=== PATIENT | male | born 1975 | race Caucasian/White ===

== ENCOUNTER 2016-08-11 18:11 | Emergency (ER) | payer OTHER, MEDICAID ==
[2016-08-11 18:24] VITALS: BP 145/90; PULSE 125; RESP 20; TEMP 98.6; O2SAT 96
--- NOTE | 2016-08-11 18:52 | EDPHY ---
ED Progress Note Narrative: Patient left without being seen, never evaluated by myself or other provider in the emergency department.
== END 2016-08-11 18:50 | disposition left against medical advice (07) ==
DX: Z53.21 Procedure and treatment not carried out due to patient leaving prior to being seen by health care provider (principal)

== ENCOUNTER 2016-09-06 08:58 | Emergency (ER) | payer OTHER, MEDICAID ==
[2016-09-06 09:27] VITALS: RESP 16; TEMP 97.3
[2016-09-06] MEDS ORDERED: TDAP ADULT 0.5 ML INJ (BOOSTRIX) IM ONE (09:58)
--- NOTE | 2016-09-06 11:01 | EDPHY ---
H & P Stated Complaint: laceration to right middle finger on broken glass 2 days ago HPI/ROS: CHIEF COMPLAINT: Finger injury HISTORY OF PRESENT ILLNESS: Patient complains of laceration to the right middle finger 2 days ago. This was when a glass jar accidentally broke consent. Sustained a large laceration to the volar aspect of the right middle finger, and superficial lacerations of the 4th and 5th finger. He attempted to dress this himself. He has had bacitracin and an occlusive dressing on it over the past 2 days. He is now concerned about the possibility of infection. He has moderate pain with moving the finger. He has minimal bleeding noted. No numbness or tingling distally. No cyanosis or pallor distally. He feels that he is unable to fully flex the finger. No injury to the palm. He is not sure when his last tetanus shot was. No other associated complaints or modifying factors. PRIOR ORTHO INJURIES: None ESTABLISHED ORTHOPEDIST: None REVIEW OF SYSTEMS: Ten systems reviewed and are negative unless otherwise noted in the HPI EXAMINATION General Appearance: Alert, no distress Cardiovascular: Pulses normal throughout. Symmetric radial pulses are 2+. Brisk cap refill Neurological: A&O, sensory symmetric, strength symmetric. Two point sensation retained Skin: Warm and dry, no rash. There is a curvilinear, jagged laceration with laceration on the volar aspect of the middle finger overlying the PIP joint and the proximal phalanx. There is dried blood around the edges. There is moderate edema to the finger. Superficial lacerations on the volar aspect of the 4th and 5th fingers. Sub cm. Extremities: Tenderness over the volar aspect of the right middle finger involving the laceration. His range of motion is intact but painful. He retains the ability to flex the distal phalanx. He has limited flexion of the entire finger due to edema of the finger. He is neurovascular intact distal to the injury. Psychiatric: Mood and affect normal DIFFERENTIAL DIAGNOSES: Including but not limited to complex laceration, laceration with delayed healing , foreign body MDM: 10:30 a.m. Laceration to the right middle finger 2 days ago. This was from a glass jar in his home. Patient is not seek any care until today. He has had an occlusive dressing with bacitracin the entire time. The wound is very boggy and edematous. No signs of infection. He is neurovascular intact distal to the injury. X-ray has been ordered for the possibility of foreign body. X-ray interpretation by the radiologist is that there are 2, sub mm punctate areas of possible foreign body on the medial aspect of the finger. I will pull the skin flap back, explore the wound bed, and we will copiously irrigated. 11:05 a.m. I re-evaluated the wound and explored the wound bed. There was 1 small piece of glass that I was able to feel the forceps and removed. We will proceed with copious irrigation. Then I will proceed with tacking the wound down loosely, bulky dressing and follow up with hand surgeon. 11:47 a.m. Wound has been copiously irrigated. I re-explored I cannot appreciate find any evidence of foreign body. I have close the wound loosely with 5, simple interrupted sutures. We will provide bulk dressing with tube gauze. I will provide prescription for clindamycin due to his penicillin allergy. I discussed return to the emergency department precautions. He is to follow up with hand surgeon this week for definitive care. Return here for signs of infection as discussed. He is comfortable with this plan. He is neurovascular intact post procedure. He is discharged home stable condition. ED Precautions: Worsening pain. Erythema, edema, cyanosis, pallor, paresthesia or anesthesia. SUPERVISION: Patient was evaluated in conjunction with the supervising physician. Please see their note for details. Source: Patient Exam Limitations: No limitations - Personal History Current Tetanus Diphtheria and Acellular Pertussis (TDAP): Unsure - Medical/Surgical History Hx Asthma: No Hx Chronic Respiratory Disease: No Hx Diabetes: No Hx Cardiac Disease: No Hx Renal Disease: No Hx Cirrhosis: No Hx Alcoholism: No Hx HIV/AIDS: No Hx Splenectomy or Spleen Trauma: No Other PMH: BIPOLAR, SLEEP DISORDER, ?ADHD - Social History Smoking Status: Current every day smoker Constitutional: Initial Vital Signs Temperature (C) 97.3 F 09/06/16 09:23 Heart Rate 86 09/06/16 09:23 Respiratory Rate 16 09/06/16 09:23 Blood Pressure 111/70 09/06/16 09:23 O2 Sat (%) 95 09/06/16 09:23 O2 Delivery Mode Room Air Allergies/Adverse Reactions: Penicillins Allergy (Severe, Verified 08/22/14 19:47) rash, resp distress divalproex sodium [From Depakote] Allergy (Verified 08/22/14 19:47) haloperidol [From Haldol] Allergy (Verified 08/22/14 19:47) haloperidol lactate [From Haldol] Allergy (Verified 08/22/14 19:47) red dye Allergy (Verified 08/22/14 19:47) BIPOLAR MED USED FOR ACNE Allergy (Uncoded 08/22/14 19:47) HALDOL Allergy (Uncoded 08/22/14 19:47) Home Medications: Medication Instructions Recorded Clindamycin 300 mg PO Q8 #60 cap 09/06/16 Medical Decision Making - Diagnostics Imaging Results: Imaging Impressions Finger X-Ray 09/06/16 09:49 Impression: Punctate, less than 1 mm, densities reside in the soft tissues of the index finger. No large retained foreign body. - Data Points Medications Given: Discontinued Medications Diphtheria/Tetanus/Acell Pertussis (Boostrix) 0.5 ml IM .ONCE ONE Stop: 09/06/16 09:59 Last Admin: 09/06/16 10:14 Dose: 0.5 ml Departure - Departure Disposition: Home, Routine, Self-Care Clinical Impression: Finger laceration Qualifiers: Encounter type: initial encounter Qualified Code(s): S61.219A - Laceration without foreign body of unspecified finger without damage to nail, initial encounter Condition: Good Instructions: Finger Laceration (ED), Care For Your Stitches (ED), Wound Healing and Your Diet (ED) Additional Instructions: Wound care as discussed with daily dressing changes. Follow up with hand surgeon for definitive care. Return here for signs of infection Referrals: NONE *PRIMARY CARE P,. [Primary Care Provider] - As per Instructions Griselda Patterson MD [Medical Doctor] - As per Instructions Prescriptions: Clindamycin 300 mg PO Q8 #60 cap
[2016-09-06 12:39] VITALS: BP 112/85; PULSE 87; O2SAT 98
== END 2016-09-06 12:39 | disposition home or self-care (01) ==
DX: S61.212A Laceration without foreign body of right middle finger without damage to nail, initial encounter (principal); F17.200 Nicotine dependence, unspecified, uncomplicated; Z23 Encounter for immunization; W25.XXXA Contact with sharp glass, initial encounter

== ENCOUNTER 2016-11-15 23:38 | Emergency (ER) | payer OTHER, MEDICAID ==
--- NOTE | 2016-11-16 03:45 | EDPHY ---
H & P Stated Complaint: abdominal pain HPI/ROS: HPI CHIEF COMPLAINT: Constipation HISTORY OF PRESENT ILLNESS: This patient is a 41-year-old male presents emergency room, significant past medical history for bipolar disorder, presents emergency room stating that he feels constipated. He states that he a large amount of food and states that showed of transition throughout his abdomen and had a bowel movement by now. He feels full and bloated. Denies chest pain, shortness of breath or significant abdominal pain. Denies nausea vomiting or fever. He is requesting a laxative. Past Medical History: Bipolar disorder Past Surgical History: No recent surgical history Social History: Denies daily use of drugs alcohol tobacco products Family History: Noncontributory ROS REVIEW OF SYSTEMS: A comprehensive 10 point review of systems is otherwise negative aside from elements mentioned in the history of present illness. Exam Constitutional triage nursing summary reviewed, vital signs reviewed, awake/ alert. Eyes normal conjunctivae and sclera, EOMI, PERRLA. HENT normal inspection, atraumatic, moist mucus membranes, no epistaxis, neck supple/ no meningismus, no raccoon eyes. Respiratory clear to auscultation bilaterally, normal breath sounds, no respiratory distress, no wheezing. Cardiovascular rate normal, regular rhythm, no murmur, no edema, distal pulses normal. Gastrointestinal soft, non-tender, no rebound, no guarding, normal bowel sounds, no distension, no pulsatile mass. Genitourinary no CVA tenderness. Musculoskeletal no midline vertebral tenderness, full range of motion, no calf swelling, no tenderness of extremities, no meningismus, good pulses, neurovascularly intact. Skin pink, warm, & dry, no rash, skin atraumatic. Neurologic awake, alert and oriented x 3, AAOx3, moves all 4 extremities equally, motor intact, sensory intact, CN II-XII intact, normal cerebellar, normal vision, normal speech. Psychiatric normal mood/affect. Heme/Lymph/Immune no lymphadenopathy. Differential Diagnosis: Includes but is not limited to in a particular order constipation, fecal impaction. Medical Decision Making: This patient has very normal bowel sounds on exam, abdomen is soft nontender, no significant distention or bloating. Patient requesting laxative for constipation. No indication for imaging at this time. Will prescribe MiraLax. Understands return emergency room if develops worsening abdominal pain fever vomiting. Source: Patient - Personal History Current Tetanus/Diphtheria Vaccine: Yes Current Tetanus Diphtheria and Acellular Pertussis (TDAP): Yes Tetanus Vaccine Date: 2016 - Medical/Surgical History Hx Asthma: Yes Hx Chronic Respiratory Disease: No Hx Diabetes: No Hx Cardiac Disease: No Hx Renal Disease: No Hx Cirrhosis: No Hx Alcoholism: No Hx HIV/AIDS: No Hx Splenectomy or Spleen Trauma: No Other PMH: BIPOLAR, SLEEP DISORDER, ?ADHD - Social History Smoking Status: Former smoker Constitutional: Initial Vital Signs Temperature (C) 36.8 C 11/15/16 23:47 Heart Rate 77 11/15/16 23:47 Respiratory Rate 16 11/15/16 23:47 Blood Pressure 129/75 H 11/15/16 23:47 O2 Sat (%) 96 11/15/16 23:47 O2 Delivery Mode Room Air Allergies/Adverse Reactions: Penicillins Allergy (Severe, Verified 11/15/16 23:46) rash, resp distress divalproex sodium [From Depakote] Allergy (Verified 11/15/16 23:46) haloperidol [From Haldol] Allergy (Verified 11/15/16 23:46) haloperidol lactate [From Haldol] Allergy (Verified 11/15/16 23:46) red dye Allergy (Verified 11/15/16 23:46) BIPOLAR MED USED FOR ACNE Allergy (Uncoded 11/15/16 23:46) HALDOL Allergy (Uncoded 11/15/16 23:46) Home Medications: Medication Instructions Recorded Clindamycin 300 mg PO Q8 #60 cap 09/06/16 Polyethylene Glycol 3350 [Miralax 17 gm PO DAILY #2 pkt 11/16/16 17 gm (*)] Departure - Departure Disposition: Home, Routine, Self-Care Clinical Impression: Constipation Qualifiers: Constipation type: other constipation type Qualified Code(s): K59.09 - Other constipation Condition: Good Instructions: Constipation (ED) Additional Instructions: 1. Drink lots of water. Stay well-hydrated. 2. Take MiraLax as prescribed Referrals: NONE *PRIMARY CARE P,. [Primary Care Provider] - As per Instructions Prescriptions: Polyethylene Glycol 3350 [Miralax 17 gm (*)] 17 gm PO DAILY #2 pkt
[2016-11-16 04:21] VITALS: BP 128/72; PULSE 78; RESP 18; TEMP 98.4; O2SAT 93
== END 2016-11-16 04:20 | disposition home or self-care (01) ==
DX: K59.09 Other constipation (principal); J45.909 Unspecified asthma, uncomplicated; Z87.891 Personal history of nicotine dependence

== ENCOUNTER 2016-12-22 19:47 | Inpatient (IN) | payer OTHER, MEDICAID ==
[2016-12-22] MEDS ORDERED: OLANZapine DISINTEGR 10 MG TAB PO ONE (20:02)
--- NOTE | 2016-12-22 20:05 | EDPHY ---
H & P - Personal History Tetanus Vaccine Date: 2016 - Medical/Surgical History Hx Asthma: Yes Hx Chronic Respiratory Disease: No Hx Diabetes: No Hx Cardiac Disease: No Hx Renal Disease: No Hx Cirrhosis: No Hx Alcoholism: No Hx HIV/AIDS: No Hx Splenectomy or Spleen Trauma: No Other PMH: BIPOLAR, SLEEP DISORDER, ?ADHD - Social History Smoking Status: Former smoker Time Seen by Provider: 12/22/16 19:51 HPI/ROS: CHIEF COMPLAINT: Hallucination HISTORY OF PRESENT ILLNESS: 41-year-old male history of bipolar disorder arrives via EMS, not on M1 hold. Per EMS, the roommate called 911 because she was concerned about his ability to care for himself, has been having increasing visual auditory hallucinations. Patient self is unable provide me a reliable history, he repeatedly mentions "The 2 fat white girls dancing in the tree with pink dresses on" which he states he can see in the examination room and also states that he is experiencing auditory hallucinations but will not tell me what they are saying. There are no reports of overdose or self-injury. PRIMARY CARE PROVIDER: REVIEW OF SYSTEMS: A ten point review of systems was performed and is negative with the exception of the items mentioned in the HPI PAST MEDICAL & SURGICAL HISTORY: Bipolar disorder SOCIAL HISTORY: denies alcohol use PHYSICAL EXAM (Prior to examination, patient consented to physical exam, hands were washed and my usual and customary physical exam procedures followed) 1) GENERAL: Poorly kept, flight of ideas 2) HEAD: Normocephalic, atraumatic 3) HEENT: Pupils equal, round, reactive to light bilaterally. Sclera anicteric. 4) NECK: Full range of motion, no meningeal signs. 5) LUNGS: Clear auscultation bilaterally, no wheezes, no rhonchi, no retractions. 6) HEART: Regular rate and rhythm, no murmur, no heave, no gallop. 7) ABDOMEN: No guarding, no rebound, no focal tenderness, negative McBurney's, negative Bello's, negative Rovsing's, negative peritoneal sign, 8) MUSCULOSKELETAL: Moving all extremities, no focal areas of tenderness, no obvious trauma. No peripheral edema or discoloration. 9) BACK: No CVA tenderness, no midline vertebral tenderness, no fluctuance, no step-off, no obvious trauma, no visual or palpable abnormality. 10) SKIN: No rash, no petechiae. 11) Psychiatric: Patient appears to be responding to internal stimuli, has rapid speech, flight of ideas DIFFERENTIAL DIAGNOSIS: in no particular order including but not limited to ana, psychosis, depression, polysubstance abuse (Che Carmen Keesha) Constitutional: Initial Vital Signs Temperature (C) 36.8 C 12/22/16 20:00 Heart Rate 90 12/22/16 20:00 Respiratory Rate 18 12/22/16 20:00 Blood Pressure 161/95 H 12/22/16 20:00 O2 Sat (%) 95 12/22/16 20:00 O2 Delivery Mode Room Air Allergies/Adverse Reactions: Penicillins Allergy (Severe, Verified 11/15/16 23:46) rash, resp distress divalproex sodium [From Depakote] Allergy (Verified 11/15/16 23:46) haloperidol [From Haldol] Allergy (Verified 11/15/16 23:46) haloperidol lactate [From Haldol] Allergy (Verified 11/15/16 23:46) red dye Allergy (Verified 11/15/16 23:46) BIPOLAR MED USED FOR ACNE Allergy (Uncoded 11/15/16 23:46) HALDOL Allergy (Uncoded 11/15/16 23:46) Home Medications: Medication Instructions Recorded Wellbutrin Xl 12/22/16 Medical Decision Making ED Course/Re-evaluation: 8:07 p.m.: In consultation with Dr. Pratibha De Dios this patient has been placed on M1 hold as I am concerned about his ability to care for himself, I think he is gravel disabled. (Che Carmen Keesha) 3:00 a.m.- I received sign-out on this patient at approximately midnight. He has been stable throughout my shift. The mental health worker Maday evaluated him and he has been accepted at [address] [place] [address] Cook. The patient was medicated earlier in the day, however now is exhibiting more signs of psychosis. We will treat him with Zyprexa and Ativan for this. I have completed the EMTALA form. ( Laurel Iverson) Other Provider: The patient wasevaluatedand managed by themmelevel provider. Idiscussed the patient's presentation and course with thephysicianassistantor nurse practitionerand agree with theevaluation. My co-signature indicates that I have reviewed this chart and I agree with the findings and plan of care as documented. I am the secondary supervisingphysician. (Pratibha De Dios) - Data Points Laboratory Results: Laboratory Results 12/22/16 19:50 12/22/16 19:50 Medications Given: Discontinued Medications Lorazepam (Ativan) 1 mg PO EDNOW ONE Stop: 12/22/16 21:32 Last Admin: 12/22/16 22:06 Dose: 1 mg Lorazepam (Ativan) 1 mg PO EDNOW ONE Stop: 12/22/16 22:00 Last Admin: 12/22/16 22:18 Dose: Not Given Lorazepam (Ativan) 1 mg PO EDNOW ONE Stop: 12/23/16 03:09 Last Admin: 12/23/16 03:10 Dose: 1 mg Olanzapine (Zyprexa Zydis) 10 mg PO EDNOW ONE Stop: 12/22/16 20:03 Last Admin: 12/22/16 20:15 Dose: 10 mg Olanzapine (Zyprexa Zydis) 10 mg PO EDNOW ONE Stop: 12/23/16 03:09 Last Admin: 12/23/16 03:10 Dose: 10 mg Departure - Departure Disposition: [facility] IP Clinical Impression: Bipolar disorder with severe ana Psychosis Qualifiers: Psychosis type: unspecified psychosis type Qualified Code(s): F29 - Unspecified psychosis not due to a substance or known physiological condition Condition: Fair
[2016-12-22 20:44] LABS: % IMMATURE GRANULYOCYTES 0.3 % (0.0-1.1); ABSOLUTE IMMATURE GRANULOCYTES 0.03 10^3/uL (0.00-0.10); ADD DIFF? NO; ADD MORPH? NO; ADD SCAN? NO; ATYPICAL LYMPHOCYTE FLAG 10 (0-99); FRAGMENT RBC FLAG 0 (0-99); HEMATOCRIT 41.8 % (40.0-51.0); HEMOGLOBIN 14.7 g/dL (13.7-17.5); LEFT SHIFT FLG 0 (0-99); LIPEMIA HEMOLYSIS FLAG 90 (0-99); MEAN CELL HEMOGLOBIN 32.5 pg (27.9-34.1); MEAN CELL HEMOGLOBIN CONCENTR. 35.2 g/dL (32.4-36.7); MEAN CELL VOLUME 92.5 fL (81.5-99.8); MEAN PLATELET VOLUME 10.6 fL (8.7-11.7); PLATELET CLUMPS FLAG 0 (0-99); PLATELET COUNT 319 10^3/uL (150-400); RED BLOOD CELL COUNT 4.52 10^6/uL (4.40-6.38); RED CELL DISTRIBUTION WIDTH 12.5 % (11.5-15.2)
[2016-12-22 20:48] LABS: ANION GAP 15 mEq/L (8-16); CARBON DIOXIDE 19 mEq/l (22-31); CHLORIDE 106 mEq/L (97-110); CREATININE 0.9 mg/dL (0.7-1.3); ETHANOL SERUM < 10 mg/dL (0-10); GLOMERULAR FILTRATION RATE > 60; GLUCOSE 101 mg/dL (70-100); POTASSIUM 3.9 mEq/L (3.5-5.2); SALICYLATE < 1.0 mg/dL (2.0-20.0); SODIUM 140 mEq/L (134-144)
[2016-12-22] MEDS ORDERED: LORazepam 1 MG TAB PO ONE ×2 (21:31→21:59)
[2016-12-23] MEDS ORDERED: LORazepam 1 MG TAB ONE (03:06)
[2016-12-23] MEDS ORDERED: OLANZapine DISINTEGR 10 MG TAB ONE (03:06)
[2016-12-23] MEDS ORDERED: LORazepam 1 MG TAB PO ONE (03:08)
[2016-12-23] MEDS ORDERED: OLANZapine DISINTEGR 10 MG TAB PO ONE (03:08)
[2016-12-23] MEDS ORDERED: MAG HYDROX/AL HYDROX/SIMETH 30 ML UDCUP PO PRN (04:30)
[2016-12-23] MEDS ORDERED: ACETAMINOPHEN 325 MG TAB PO PRN (04:30)
[2016-12-23] MEDS ORDERED: MAGNESIUM HYDROXIDE 30 ML UDCUP PO PRN (04:30)
[2016-12-23] MEDS ORDERED: OLANZapine DISINTEGR 10 MG TAB PO PRN (04:30)
[2016-12-23] MEDS: NICOTINE POLACRILEX 2 MG GUM B PRN ×2 (14:12→20:47)
[2016-12-23] MEDS ORDERED: SENNOSIDES 1 TAB PO PRN (15:58)
--- NOTE | 2016-12-23 17:41 | BAPA ---
[f rep st] ADMISSION PSYCHIATRIC ASSESSMENT DATE OF SERVICE: 12/23/2016 REASON FOR ADMISSION: The patient is a 41-year-old male with reported history of bipolar disorder, who was brought into the hospital by ambulance after his roommate called 911. He apparent ly had been declining for several weeks and had not been sleeping. His roommate reported that he wa s having auditory and visual hallucinations as well, and was concerned for his well being. She had reported to police that the patient was unable to function. I am unable to obtain any information a t all from the patient himself because he is completely disorganized and unable to give a coherent i nterview. The patient's parents gave collateral information to [facility] in the emergency department last night, stating that he had been in his normal state of mental health for several years until a coup le of weeks ago. They stated that he seemed more depressed, partly because of unemployment and mayb e isolation, but that they had no indication he was becoming manic. No other collateral information is available at the time of this dictation. PAST PSYCHIATRIC HISTORY: Significant for previous episodes of ana per his parents' report. It i s unclear whether he was hospitalized for this. He has not previously been hospitalized at this [facility] for psychiatric purposes. ALLERGIES: Listed to Depakote, penicillin, Haldol, and red dye. CURRENT MEDICATIONS: Listed only Wellbutrin with no known dose. PAST MEDICAL HISTORY: Reportedly noncontributory by his parents. SOCIAL HISTORY: The patient grew up in [place]. His parents continue to live there and are his pr imary supports. The patient has a history of some drug use in the past, though parents are unclear of what. There is no known history that he has been using substances recently. FAMILY HISTORY: Patient's mother has bipolar disorder. ADMISSION LABORATORY: CBC is normal. Serum chemistries are normal. Urine drug screen showed no gaffney bstances of abuse. Alcohol was less than detectable. MENTAL STATUS EXAMINATION: Reveals a thin, though healthy-appearing male. His external a ppearance is notable for wearing women's eyeglasses, which he takes on and off and states several ti mes that they are not his. He is also wearing a ball cap that is not latched in the back that he pu ts on his head and then lies down on the bed and it falls off, and then he sits back up to put it ba ck on repeatedly. He struggles to interact in a meaningful way. He makes little eye contact and mu mbles to himself. He is unable to give goal-directed answers to any questions. His affect is other white blunted and stable. He is unable to describe his mood. His thought processes are completely d isorganized to the point of near word salad. His thought content reveals no obvious psychotic featu res other than the level of disorganization. He is unable to answer questions in regard to orientat ion. He is unable to answer questions in regard to safety and dangerousness. His insight and judgm ent appear to be poor. IMPRESSION: 1. Bipolar 1 disorder, most recent episode manic, severe, with psychosis. 2. Recurrent illness, marginal supports. The patient is a 41-year-old male with a history of bipolar disorder. He appears to be hines ving a severe recurrence with psychosis. His labs and physiologic workup are normal, and it is unli brooke that he is suffering also from delirium. We will monitor closely, however, due to the level of symptomatology. PLAN: 1. Admit to the Behavioral Health Services Inpatient Unit on an M1 hold. 2. Monitor his overall behaviors and clinical course to better understand his diagnosis and direct treatment. 3. Obtain as much collateral information as possible to best direct therapy. 4. Estimated length of stay is 7-10 days. /[id number]/MODL
--- NOTE | 2016-12-23 20:02 | BCON ---
[f rep st] BEHAVIORAL HEALTH CONSULTATION INTERNAL MEDICINE CONSULTATION DATE OF CONSULTATION: 12/23/2016 REFERRING PHYSICIAN: Carson Almanzar MD REASON FOR REFERRAL: Medical clearance for admission to Behavioral Health Unit. HISTORY OF PRESENT ILLNESS: This patient was brought to the [facility] Emergency Department on an M1 hold after his room mate had called 911 because she was concerned about his ability to care for himself. He was noted to be having visual and auditory hallucinations in the emergency department. He was evaluated by the mental health team and admitted for further psychiatric care. He currently reports that he has some constipation. PAST MEDICAL HISTORY: 1. Bipolar disorder. 2. Fracture of the right distal fibula, status post operative repair. 3. Neck laceration as a 3-year-old child. MEDICATIONS: Per the medical record, he has been prescribed Wellbutrin. Is it unknown if he was taking it or not. ALLERGIES: Listed to penicillin, divalproex sodium, haloperidol, red dye, and a bipolar med that was used for acne. SOCIAL HISTORY: He lives with his girlfriend. He is not currently employed. FAMILY HISTORY: Noncontributory. REVIEW OF SYSTEMS: Somewhat limited due to tangentiality. He reports constipation. He is not in any pain. He denies cough and dyspnea. He has a good appetite, and otherwise to the extent that it could be obtained, a 10- point review of systems was negative. PHYSICAL EXAMINATION: VITAL SIGNS: Blood pressure is 120/58, heart rate is 68, respiratory rate 10, oxygen saturation 100% on room air, temperature 36.4 degrees centigrade. His weight is 72.6 kg. GENERAL: This is a well-nourished, well-developed man lying in bed, propped up on 1 elbow, eating crackers. Cooperative and in no acute distress. HEENT: Extraocular movements are intact. Mucous membranes are moist. Dentition is in good condition. NECK: Supple. HEART : There is a regular rate and rhythm with no murmurs, rubs, or gallops. LUNGS: Clear to auscultation bilaterally. ABDOMEN: Soft, nontender and nondistended with normoactive bowel sounds. EXTREMITIES: No cyanosis, clubbing, or edema. NEUROLOGIC: He is alert. He knows where he is. Further orientation was not tested. There is no focal weakness, and sensation is intact to light touch. LABORATORY DATA: Studies drawn in the emergency department: CBC was essentially within normal limits. There was a minor relative increase in monocytes of no clinical significance. Serum chemistry revealed a slightly low carbon dioxide at 19, slightly elevated glucose at 101, and otherwise renal function and electrolytes were within normal limits. Toxicology screen in serum was negative for salicylates, acetaminophen, and ethyl alcohol, and the urine was negative for substances of abuse. ASSESSMENT/RECOMMENDATIONS: 1. Mental health issues, pending further evaluation and management per Psychiatry and the mental health team. 2. Constipation per his report. I will order p.r.n. senna, and nurses can further evaluate whether he wants a dose and whether his bowels move. 3. Weight loss is documented in the chart; in October he weighed 81.6 kg and on this admission he weighs 76.2 kg. Query whether he has been losing weight due to his mental health conditions. He appears to have a good appetite. Would observe for normalization of caloric intake. If he continues to lose weight, further evaluation would be appropriate including age-appropriate cancer screening and testing of the thyroid axis. I seen no medical contraindications to this patient's continued stay in the outpatient behavioral health unit or to any psychiatric medications or procedures. Thank you very much for including me in the care of this patient, and please do not hesitate to contact me or the hospitalist service should there be need for further medical evaluation. /[id number]/MODL MTDD
[2016-12-23] MEDS: OLANZapine 10 MG TAB PO SCH (21:06)
[2016-12-24] MEDS: NICOTINE POLACRILEX 2 MG GUM B PRN ×4 (06:39→15:59)
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
[2016-12-24] MEDS: OLANZapine 10 MG TAB PO SCH (20:40)
[2016-12-24] MEDS: LORazepam 0.5 MG TAB PO PRN (21:02)
[2016-12-25] MEDS: NICOTINE POLACRILEX 2 MG GUM B PRN ×4 (08:41→18:45)
--- NOTE | 2016-12-25 17:34 | SOAPPROG ---
SOAP Progress Note Assessment/Plan: Assessment:Patient with bipolar disorder type I and ?recent episode of ana with psychosis presenting with some delusional beliefs. Patient reporting he was actually diagnosed with bipolar verus ADHD, and he believes he did best on Wellbutrin. He did take Zyprexa again yesterday, and he did not have any bad reactions. He does want to leave, but he remains psychotic. Plan: Will continue Zyprexa. Will change legal to [facility] to continue treatment. Will try to get collateral information including information about his recent outpatient treatment through [facility]. 12/24/16 15:47 12/24/16 16:10 12/25/16 11:31 12/25/16 17:25 12/25/16 17:37 Subjective: He reports he wants to leave because he believes he can make arrangements to see the psychiatrist once he gets out of her. He reports being last seen two weeks ago. He was on Wellbutrin and an unknown medication he didn't like. He later reports the medications was most likely Zyprexa. He reports Dr. Nair diagnosed him with ADHD, but he was not seeing Dr. Nair recently. He fears financial ruin if he is not discharged today. He reports he has not paid his rent, and he will be evicted if he does not get it paid today, the last day of his marc period. He reports his roommate is physically disabled, and she won't be able to help get the bill paid on his behalf. He also worried that she would not take care of his animals because she can't take care of a dog or a cat. He later felt she would be able to take care of his cat. Objective: Vital Signs Temp Pulse Resp BP Pulse Ox 36.4 C 86 16 115/75 98 12/25/16 05:55 12/25/16 05:55 12/25/16 05:55 12/25/16 05:55 12/25/16 05:55 male, sitting in a chair wearing a torn shirt and dirty blue jeans. Good eye contact. Speech- RRR and concerned tone. Mood- "Good." Affect - Euthymic. Thought Process- disorganized. Thought Content - No SI/HI. No AH/VH. - Time Spent With Patient Time Spent With Patient: 25 - Pending Discharge Pending Discharge Within 24 Hours: No Pending Discharge Within 48 Hours: No ICD10 Worksheet Patient Problems: Problems Problem Status Onset Bipolar disorder with severe ana Acute Psychosis Acute
[2016-12-25] MEDS: OLANZapine 10 MG TAB PO SCH (19:39)
[2016-12-25] MEDS: LORazepam 0.5 MG TAB PO PRN (19:39)
[2016-12-26] MEDS: NICOTINE POLACRILEX 2 MG GUM B PRN ×5 (09:04→22:34)
--- NOTE | 2016-12-26 16:31 | SOAPPROG ---
SOAP Progress Note Assessment/Plan: Assessment:Patient with bipolar disorder type I and ?recent episode of ana with psychosis presenting with some delusional beliefs. Patient reporting he was actually diagnosed with bipolar verus ADHD, and he believes he did best on Wellbutrin. Attempts made to explain why it was contraindicated, but patient didn't seem to fully understand. He reports he has "allergies" to many medications including Zyprexa, lithium, and Depakote. He was not able to describe his reaction to these medications. It appears he just does not want to be on any of them. He has not changed his mind about his medication of choice. He is more cooperative today. He still rambles on about his roommate's behaviors being the cause of most of his problems. Plan: Will continue Zyprexa. No allergic reaction to date. 12/24/16 15:47 12/24/16 16:10 12/25/16 11:31 12/26/16 16:25 Subjective: He reports he is doing alright, His roommate reportedly does not understand the hypocrisy of him being separate. She is toxic. "Do you understand relationships? " "Have you ever been in this type of relationship?"When it all comes down to it we are all related. It all comes down to energy. Objective: Vital Signs Temp Pulse Resp BP Pulse Ox 36.7 C 72 16 116/72 97 12/26/16 06:00 12/26/16 06:00 12/26/16 06:00 12/26/16 06:00 12/26/16 06:00 male. Dressed still in his torn shirt and dirty jeans. Patient talkative, tangential with loose associations. ICD10 Worksheet Patient Problems: Problems Problem Status Onset Bipolar disorder with severe ana Acute Psychosis Acute
[2016-12-26] MEDS: LORazepam 0.5 MG TAB PO PRN (21:08)
[2016-12-26] MEDS: OLANZapine 10 MG TAB PO SCH (21:08)
[2016-12-27] MEDS: NICOTINE POLACRILEX 2 MG GUM B PRN ×5 (08:40→22:01)
--- NOTE | 2016-12-27 15:17 | SOAPPROG ---
SOAP Progress Note Assessment/Plan: Assessment: Plan: 12/27/16 15:19 Remains manic but improved over admission. Will CCM. Pt remains hesitant re: ZYP. Will continue at 10mg for now due to good response. Consider titrating to 15mg with pt's permission. Subjective: Pt seen, discussed with staff, chart reviewed. He is more organized and conversant today, but continues to struggle communicating with others. He speaks in a pressured manner with me, talking about his relationship with his "female friend", the need to clean up his home "so I can move on and get organized." He talks about numerous other tangential subjects, changing frequently. Compliant with Zyprexa despite claiming he has an allergy to "all of those meds." Slept 7 hours last night. Objective: Vital Signs Temp Pulse Resp BP Pulse Ox 36.4 C 82 16 106/61 96 12/27/16 06:00 12/27/16 06:00 12/27/16 06:00 12/27/16 06:00 12/27/16 06:00 MSE: Marginally groomed, coop. Speech is pressured, rapid, loud. Affect is constricted, stable. Mood is "good." TP tangential. TC reveals some grandiose and possibly erotomanic thoughts. - Time Spent With Patient Time Spent With Patient: 25" ICD10 Worksheet Patient Problems: Problems Problem Status Onset Bipolar disorder with severe ana Acute Psychosis Acute
[2016-12-27] MEDS: OLANZapine 10 MG TAB PO SCH (21:36)
[2016-12-27] MEDS: LORazepam 0.5 MG TAB PO PRN (21:36)
[2016-12-28] MEDS: NICOTINE POLACRILEX 2 MG GUM B PRN ×4 (06:31→21:53)
--- NOTE | 2016-12-28 17:15 | SOAPPROG ---
SOAP Progress Note Assessment/Plan: Assessment: Plan: 12/27/16 15:19 Remains manic but improved over admission. Will CCM. Pt remains hesitant re: ZYP. Will continue at 10mg for now due to good response. Consider titrating to 15mg with pt's permission. 12/28/16 17:15 Improving. Will titrate Zyprexa to 15mg, monitor. Subjective: Pt seen, discussed with staff. Slept well last night, >7 hours. Remains tangential, pressured. Gets into some conflicts with other patients, arguing disorganized thoughts. Compliant with meds. Discussed f/u and he is agreeable to going back to [facility]'s. Objective: Vital Signs Temp Pulse Resp BP Pulse Ox 36.5 C 80 14 109/69 94 12/28/16 06:00 12/28/16 06:00 12/28/16 06:00 12/28/16 06:00 12/28/16 06:00 MSE: Moderately activated, coop. Speech is rapid, pressured. Affect is euthymic, stable. Mood is "totally normal." TP tangential, but improved. TC reveals continued grandiose thoughts. Denies SI/HI/. - Time Spent With Patient Time Spent With Patient: 25" ICD10 Worksheet Patient Problems: Problems Problem Status Onset Bipolar disorder with severe ana Acute Psychosis Acute
[2016-12-28] MEDS: OLANZapine 10 MG TAB PO SCH (20:51)
[2016-12-28] MEDS: LORazepam 0.5 MG TAB PO PRN (21:44)
[2016-12-29] MEDS: NICOTINE POLACRILEX 2 MG GUM B PRN ×2 (08:33→13:35)
--- NOTE | 2016-12-29 12:25 | SOAPPROG ---
[facility] Progress Note Assessment/Plan: Assessment: Plan: 12/27/16 15:19 Remains manic but improved over admission. Will CCM. Pt remains hesitant re: ZYP. Will continue at 10mg for now due to good response. Consider titrating to 15mg with pt's permission. 12/28/16 17:15 Improving. Will titrate Zyprexa to 15mg, monitor. 12/29/16 12:26 Remains manic. Tolerating Zyprexa well. Day #2 of 15mg. CCM. Subjective: Pt seen, discussed with staff. Remains pressured, tangential, intrusive with others. Had some sexually inappropriate behavior yesterday, asking for hugs and invading female staff's personal space. Today he is loudly debating "quantum" with another patient. They are using a to prove their theories. They are both talking at the same time in a pressured manner that is indecipherable to me. He also loops in a repeated thought about "a man who can' t feel pain will and can only be treated by a psychiatrist who is also a medical doctor." He proposes this as a metaphor of some kind and links it to his "universal quantum" argument. Compliant with meds and sleeping adequately. Objective: Vital Signs Temp Pulse Resp BP Pulse Ox 36.6 C 69 12 111/73 94 12/29/16 06:00 12/29/16 06:00 12/29/16 06:00 12/29/16 06:00 12/29/16 06:00 MSE: Moderately activated, coop. Affect is elevated, intense. Mood is " really good." TP tangential. TC reveals grandiose and bizarre thoughts. - Time Spent With Patient Time Spent With Patient: 25" ICD10 Worksheet Patient Problems: Problems Problem Status Onset Bipolar disorder with severe ana Acute Psychosis Acute
[2016-12-29] MEDS: LORazepam 0.5 MG TAB PO PRN (20:59)
[2016-12-29] MEDS: OLANZapine 10 MG TAB PO SCH (20:59)
[2016-12-30] MEDS: NICOTINE POLACRILEX 2 MG GUM B PRN ×5 (08:48→20:57)
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
[2016-12-30] MEDS: OLANZapine 10 MG TAB PO SCH (20:45)
[2016-12-30] MEDS: LORazepam 0.5 MG TAB PO PRN (20:47)
[2016-12-31] MEDS: NICOTINE POLACRILEX 2 MG GUM B PRN ×4 (08:41→15:52)
--- NOTE | 2016-12-31 14:02 | SOAPPROG ---
SOAP Progress Note Assessment/Plan: Assessment: Plan: 12/27/16 15:19 Remains manic but improved over admission. Will CCM. Pt remains hesitant re: ZYP. Will continue at 10mg for now due to good response. Consider titrating to 15mg with pt's permission. 12/28/16 17:15 Improving. Will titrate Zyprexa to 15mg, monitor. 12/29/16 12:26 Remains manic. Tolerating Zyprexa well. Day #2 of 15mg. CCM. 12/30/16 17:01 Remains manic. Day #3 of Zyprexa 15. CCM, monitor. 12/31/16 14:02 Continued slow improvement. CCM. Subjective: Pt seen, discussed with staff. Reports feeling "really good." Remains intrusive, pressured, delusional. Reported to RN this morning that he knows the [employer] has developed transportation devices, but is keeping them secret. He interacts well with me for a while and then falls into familiar delusional preoccupations. States now he needs to d/c to change the starter in his truck. Sleeping well. Compliant with meds. Objective: Vital Signs Temp Pulse Resp BP Pulse Ox 36.6 C 81 16 134/77 H 97 12/31/16 06:00 12/31/16 06:00 12/31/16 06:00 12/31/16 06:00 12/31/16 06:00 MSE: Calmer, coop. Affect is expansive. Mood is "great." TP tangential. TC reveals continued paranoid and grandiose delusions, IOR's. - Time Spent With Patient Time Spent With Patient: 25" ICD10 Worksheet Patient Problems: Problems Problem Status Onset Bipolar disorder with severe ana Acute Psychosis Acute
[2016-12-31] MEDS: OLANZapine 10 MG TAB PO SCH (20:55)
[2016-12-31] MEDS: LORazepam 0.5 MG TAB PO PRN (22:27)
[2017-01-01] MEDS: NICOTINE POLACRILEX 2 MG GUM B PRN ×4 (09:52→20:16)
--- NOTE | 2017-01-01 13:14 | SOAPPROG ---
SOAP Progress Note Assessment/Plan: Assessment: 41yo CM with BMD, manic/psychotic, only agreeing to take zyprexa but no mood stabilizers. recent incr to 15mg hs. 01/01/17 14:49 per staff, slept 6.5hr. c/o am grogginess, thinks due to zyprexa, will try to take earlier in pm. o/w no s/e and denied any other physical complaints. hoping for d/c tomorrow, b/c plans to walk home and less traffic in streets on Sundays. lists several things he needs to take care of at home, and late fees for unpaid bills. states he t/w his friends, they think he sounds fine, pt feels fine, now feeling he is still in hosp just to bill his insurance more. t/a staff needing to cover camera on iPad when being used in group so no photos/ videos can be taken b/c otherwise this would cause legal problems for the hosp taking meds as Rxd, altho doesn't feel he has BMD, "they are mistaking creative character traits for ana, and he has no desire to be socially retarded or jeopardize anyone else or himself, so he doesn't need to still be in hospital. rather just needed to get some sleep and eat. plans to f/u w/ as before at [facility] "but here they think I need to see her more than every 6 months" MSE; cooperative, incr rate speech needing freq redirection, nml psychom activity, mood "good", affect full/hypomanic, talkative but overall more organized and more logical than the disorganized state he was in on admission, no overt delusions altho with some mild paranoid thoughts, denied ah/vh or any si/hi. cognition intact PLAN: cont on zyprexa 15mg hs. has prns avail, also prn ativan. not using prns. inappropriate boundaries with females reported, will monitor and place on ISP Objective: Vital Signs Temp Pulse Resp BP Pulse Ox 36.7 C 75 12 115/73 98 01/01/17 06:00 01/01/17 06:00 01/01/17 06:00 01/01/17 06:00 01/01/17 06:00 - Time Spent With Patient Time Spent With Patient: 25min - Pending Discharge Pending Discharge Within 24 Hours: No Pending Discharge Within 48 Hours: No ICD10 Worksheet Patient Problems: Problems Problem Status Onset Bipolar disorder with severe ana Acute Psychosis Acute
[2017-01-01] MEDS: OLANZapine 10 MG TAB PO SCH (20:54)
[2017-01-02 06:27] VITALS: TEMP 98.4
[2017-01-02] MEDS: NICOTINE POLACRILEX 2 MG GUM B PRN ×5 (08:58→19:10)
[2017-01-02] MEDS: OLANZapine 10 MG TAB PO SCH (19:10)
[2017-01-02] MEDS ORDERED: MELATONIN 3 MG TAB PO PRN (19:17)
--- NOTE | 2017-01-02 19:20 | SOAPPROG ---
SOAP Progress Note Assessment/Plan: Assessment: 41yo CM with BMD, manic/psychotic, only agreeing to take zyprexa but no mood stabilizers. recent incr to 15mg hs. 01/01/17 14:49 per staff, slept 6.5hr. c/o am grogginess, thinks due to zyprexa, will try to take earlier in pm. o/w no s/e and denied any other physical complaints. hoping for d/c tomorrow, b/c plans to walk home and less traffic in streets on Sundays. lists several things he needs to take care of at home, and late fees for unpaid bills. states he t/w his friends, they think he sounds fine, pt feels fine, now feeling he is still in hosp just to bill his insurance more. t/a staff needing to cover camera on iPad when being used in group so no photos/ videos can be taken b/c otherwise this would cause legal problems for the hosp taking meds as Rxd, altho doesn't feel he has BMD, "they are mistaking creative character traits for ana, and he has no desire to be socially retarded or jeopardize anyone else or himself, so he doesn't need to still be in hospital. rather just needed to get some sleep and eat. plans to f/u w/ as before at [facility] "but here they think I need to see her more than every 6 months" MSE; cooperative, incr rate speech needing freq redirection, nml psychom activity, mood "good", affect full/hypomanic, talkative but overall more organized and more logical than the disorganized state he was in on admission, no overt delusions altho with some mild paranoid thoughts, denied ah/vh or any si/hi. cognition intact PLAN: cont on zyprexa 15mg hs. has prns avail, also prn ativan. not using prns. inappropriate boundaries with females reported, will monitor and place on ISP 01/02/17 13:16 per staff, compliant w/ meds, attending groups pt reports feeling sleepy in AM b/c awakened early for VS. has some difficulty with sleep onset and would accept prn melatonin. will also have staff offer 5mg prn zyprexa, since clinically could benefit from incr zyprexa. states he got "riled up in group this morning" b/c acronym ANT was used and he didn't feel using an animal acronym was appropriate, he didn't like giving an inherently good animal a negative connotation. then talked about having dreams last night, and required redirection to not provide exhaustive detail and speculation on meaning. again worried about rent not being paid, late fees, bills and hope for d/c soon. 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 c/o clothes/laundry, needing new pants b/c has hole in back of jeans, can't wear scrubs from hosp b/c someone may think he works at the hospital, then kept mentioning he actually didn't have any underwear and needed some, and despite redirection, turned around and insisted to show hole in seat of pants where it was obvious he didn't have underwear. mse: casually dressed, nml psychom activity, nml eye contact, articulate speech , talkative and mildly pressured requiring redirection. engaging and otherwise pleasant and cooperative. mood good, I'm ready to leave", affect hypomanic, full. still with some grandiosity and inappropriate boundaries. has not appeared responding to internal stim. denied ah/vh or any si/hi. i/j both fair/ limited. cogn intact. noted on unit later in day continually talking to peers, security, seemingly anyone who would listen. PLAN: continue zyprexa 15mg qhs. initially planned to change to zydis, but no indication for med noncompliance, pt actually asked for HS med earlier to try and offset am sedation/. add prn melatonin at pt request change zyprexa 10mg prn to 5mg prn and will encourage pm staff to offer. may benefit from incr to 20mg altho question commitment to outpt compliance given limited insight. cont on ISP, routine safety prec, STC. informed pt he could request letter stating hosp dates to help him request waiving of any late credit card fees etc. d/w cc. hoping for d/c soon. coordinate with oupt providers. Objective: Vital Signs Temp Pulse Resp BP Pulse Ox 36.9 C 75 12 132/76 H 95 01/02/17 06:00 08/13/17 06:00 01/02/17 06:00 01/02/17 06:00 01/02/17 06:00 - Time Spent With Patient Time Spent With Patient: 25min - Pending Discharge Pending Discharge Within 24 Hours: No Pending Discharge Within 48 Hours: No ICD10 Worksheet Patient Problems: Problems Problem Status Onset Bipolar disorder with severe ana Acute Psychosis Acute
[2017-01-02] MEDS ORDERED: OLANZapine DISINTEGR 5 MG TAB PO PRN (19:33)
[2017-01-02] MEDS ORDERED: OLANZapine DISINTEGR 10 MG TAB PO SCH (21:00)
[2017-01-03] MEDS: NICOTINE POLACRILEX 2 MG GUM B PRN ×5 (06:05→18:14)
[2017-01-03 06:15] VITALS: BP 148/84; PULSE 100; RESP 14; O2SAT 97
--- NOTE | 2017-01-03 11:22 | SOAPPROG ---
SOAP Progress Note Assessment/Plan: Assessment: Plan: 12/27/16 15:19 Remains manic but improved over admission. Will CCM. Pt remains hesitant re: ZYP. Will continue at 10mg for now due to good response. Consider titrating to 15mg with pt's permission. 12/28/16 17:15 Improving. Will titrate Zyprexa to 15mg, monitor. 12/29/16 12:26 Remains manic. Tolerating Zyprexa well. Day #2 of 15mg. CCM. 12/30/16 17:01 Remains manic. Day #3 of Zyprexa 15. CCM, monitor. 12/31/16 14:02 Continued slow improvement. CCM. 01/03/17 11:22 Much improved over admission. Adriana has resolved at this point. Will CCM, d/c in a.m. directly to [facility]'s appt. Subjective: Pt seen, discussed with staff, chart reviewed. Remained intrusive and odd over the weekend, but in reasonable behavioral control. He is conversant, slightly pressured, but appropriate with me today. Compliant with meds. Agreeable to f/ u with [facility] tomorrow. Has intake at 0900. Objective: Vital Signs Temp Pulse Resp BP Pulse Ox 36.9 C 100 14 148/84 H 97 01/03/17 06:00 01/03/17 06:00 01/03/17 06:00 01/03/17 06:00 01/03/17 06:00 MSE: Mildly activated, but calm and coop. Affect is euthymic, stable, approp. Mood is "good." TP circumstantial. TC reveals ongoing mild grandiosity. - Time Spent With Patient Time Spent With Patient: 25" - Pending Discharge Pending Discharge Within 24 Hours: Yes Pending Discharge Date: 01/04/17 Pending Discharge Time: 11:00 ICD10 Worksheet Patient Problems: Problems Problem Status Onset Bipolar disorder with severe adriana Acute Psychosis Acute
--- NOTE | 2017-01-03 12:00 | BDS ---
[f rep st] BEHAVIORAL HEALTH DISCHARGE SUMMARY REASON FOR ADMISSION: The patient is a 41-year-old male with a history of bipolar disorde r. He was admitted due to ana in the setting of medication noncompliance. He apparently had been noncompliant with followup with [facility], had not been taking his prescribed medicine s for several months. He become activated, disorganized and delusional and his roommates called aut horities. He was brought in on an M1 hold and admitted for further evaluation. A full description of the events preceding admission can be found in his admission history dated 12/23/2016. ADMITTING DIAGNOSIS: Bipolar 1 disorder, most recent episode manic, severe, with psychosis, recurre nt illness marginal supports. ADMITTING PHYSICAL EXAMINATION: Performed by Dr. Julio C Rmoero revealed no acute physical finding s. ADMISSION LABORATORY: CBC was normal. Serum chemistries were normal. Urine drug screen was negati ve for all substances. Alcohol was less than detectable. HOSPITAL COURSE: Patient was admitted to the behavior health services inpatient unit on an M1 hold. He was activated, pressured, intrusive and clearly manic though was extremely disorganized when he first arrived. He struggled to communicate with others or to express himself and was placed on Zyp rexa as this had been one of his medicines in the past. He apparently had also had other mood stabi lizers but was refusing those from the outside. He took the Zyprexa at 10 mg and then 15 mg at bedt enrico with no side effects or problems. He also received an occasional dose of 5-10 mg p.r.n., especi ally in the evenings if he was having trouble sleeping. The patient improved rapidly with the Zyprexa and his thinking became more organized. He was quite tangential for the first week or so of admission, jumping from one topic to the other with some pers everation on themes such as numbers, the genetics of someone who is or is not transgendered, politic s, mandaen and some persecutory thoughts he has about a person from the Internet stalking and poten tially harming his roommate. These all diminished over time however, and he was able to be not only more verbally re-directable by myself or staff but noticing himself when he would fall off into the se systems and stopping and stating out loud, "I should stay on track." Patient's hospitalization was uncomplicated. He was compliant with medicines throughout although he did have several verbal altercations with other psychotic patients, this was nothing out of the ord inary and he displayed no aggression. He was agreeable to follow up with [facility] and appointments were made on the day of discharge. CONDITION ON DISCHARGE: The patient will be discharged within 24 hours of this dictation. At this time he is demonstrating a euthymic, stable and appropriate affect. He is forward thinking and hope ful, compliant with medications and states he will be compliant with followup. DISCHARGE MEDICATIONS: Zyprexa 15 mg p.o. at bedtime. DISCHARGE DIAGNOSES: Bipolar 1 disorder, most recent episode manic, severe with psychosis, chronic illness, recent exacerbation, lack of support, unemployment, financial struggles, interpersonal conf lict with roommates. DISPOSITION: The patient is to leave the hospital with [facility] staff to go directly to the [facility] for intake at [facility]. FOLLOWUP: With [facility] tomorrow at 9:00 a.m. LEGAL COURSE: We will drop the short-term certification at the time of his discharge from the [facility]. /[id number]/MODL
[2017-01-03] MEDS ORDERED: OLANZapine 5 MG TAB PO SCH (21:00)
== END 2017-01-04 08:50 | DRG 885 ==
LOC: EDUNIT# → BBEH 12-23 04:20
PROVIDERS: ADMIT Psychiatry & Neurology Psychiatry; ATTEND Psychiatry & Neurology Psychiatry
DX: F31.2 Bipolar disorder, current episode manic severe with psychotic features (principal); J45.909 Unspecified asthma, uncomplicated; K59.00 Constipation, unspecified; T43.506A Underdosing of unspecified antipsychotics and neuroleptics, initial encounter; Z91.19 Patient's noncompliance with other medical treatment and regimen
CPT/HCPCS: 80305; G0480

== ENCOUNTER 2018-07-09 17:42 | Emergency (ER) | payer OTHER, MEDICAID ==
--- NOTE | 2018-07-09 17:51 | EDPHY ---
HPI/HX/ROS/PE/MDM Narrative: CHIEF COMPLAINT: Abdominal pain. HPI: This patient is a 42 year old patient with history of bipolar disorder and reported remote history of intussusception as a child. He presents today with generalized abdominal pain which began this morning. He states "I need charcoal and I need an enema" and "I need to get this stuff out of me". He indicates epigastric pain and generalized lower pain, nearly 10/10 in severity, and similar to his history of "intususseption" as a child, which was relieved with charcoal and enemas. He denies toxic or FB ingestion. He complains of associated nausea. He has not vomited. He states he had some "aren" following an enema he administered at home. He denies any blood in his stool. No fever. He had normal bowel movements yesterday and no symptoms prior to this morning. This patient was evaluated earlier today at [facility] in [place] for the same symptoms and had a CT scan and laboratory studies at that time. He states he did not have appropriate management there and presents here for a "second opinion". He reiterates frequently that he "just need[s] charcoal and an enema". The interview is somewhat difficult to obtain as the patient appears quite focused on his treatment requests and his dissatisfaction with his prior treatment rather than providing a cohesive summary of his symptoms. REVIEW OF SYSTEMS: A comprehensive 10 system review of systems is otherwise negative aside from elements mentioned in the history of present illness and medical decision making. PMH: Bipolar disorder, sleep disorder. SOCIAL HISTORY: Friend at bedside. Lives in [place]. Heavy tobacco use. PHYSICAL EXAM: General:Patient is alert, in no acute distress. Initially wearing sunglasses inside. Very agitated. ENT:Eyes are normal to inspection. ENT inspection normal. Neck: Normal inspection. Full range of motion. Respiratory:No respiratory distress. Breath sounds normal bilaterally. Cardiovascular: Regular rate and rhythm. Strong peripheral pulses. Normal cap refill. Abdomen:The abdomen is nontender to palpation. There are no peritoneal signs. There are normal bowel sounds. Extremities: Normal appearance. Full range of motion. Neuro: Oriented x3. Normal motor function. Normal sensory function. ED Course: I reviewed records from patient's visit to [facility] earlier today on O. CT from [facility] shows mild constipation with some fluid within colon, no bowel obstruction or other acute processes identified. Extensive laboratory studies are unremarkable including lipase, CMP. I discussed my review of the patient's studies completed earlier today with him , and let him know that the appropriate emergency department tests were performed during his visit to [facility], and discussed options with him. He continues to insist on getting something to "get this out of me" - I explained that given extensive workup already performed earlier today that we should initially try to make him more comfortable rather than perform immediate further testing. He is asking for charcoal to help fix his blockage. I do not think laxatives are emergently indicated but agreed to provide him with some Mg citrate to see if this helped. He and his friend/family member at bedside are very dissatisfied with this. The patient states "I'm not leaving until its fixed, I'm not gonna be in pain like this all night" and continues to ask for charcoal. I let the patient know that charcoal is not a treatment for constipation and could worsen his symptoms. He is convinced that he has "a blockage", and I explained that the CT from earlier today showed no blockage, but some constipation. He replied "well constipation is a fucking blockage!" I again offered magnesium citrate, and he agrees to try this, but then became very irritated. He requests that he be moved to another part of the hospital where he can just stay the night. I explained that his presentation does not warrant admission or extended observation in the emergency department. He and his friend both became extremely irritated and hostile. The patient states "Until I have a bowel movement, I am not leaving" and states that it is his right to be stay here in the ED. His friend at bedside suggest that "maybe he has dry pleurisy". I again reassured them that I reviewed all of his studies from earlier today and there are no indications for further evaluation without first trying outpatient relief. He certainly has no symptoms consistent with pleurisy. At this point, the patient and his friend agreed to leave, but are requesting the names of local urgent care centers to obtain a "third opinion". I let them know they may certainly seek care at any emergency department or urgent care in the area if they choose, and that we would be happy to re-evaluate him here if needed. His friend states "I hope he doesn't , because you will be sued!" 18:30 Plan to discharge home in good condition. The patient is non-toxic appearing. He will try magnesium citrate at home. Follow up and return precautions discussed. Referral to gastroenterology provided. The patient and his friend will leave with followup information and magnesium citrate. MDM: This was a challenging patient encounter. The patient was initially reported to have complained of chest pain in triage, so he was brought back immediately to the exam room where I was waiting for him. On arrival to the room, the patient denied chest pain, and began instead to be very agitated, talking about his steel-toed shoes, steel belt buckle and the fact that he planned on wearing sunglasses inside. The patient became increasingly hostile over the course of his ED stay, claiming that we "didn't know what the fuck" we were doing, and insisting on charcoal as a remedy for his symptoms. He was completely resistant to any suggested course of action other than this, and made numerous demands including admission to the hospital and enema administration. When I suggested otherwise, that we focusing on trying to control his symptoms, I was met with hostility from him and his check weigher, with immediate threats to jermaine me if I did not do what they wanted. I tried my best to maintain composure, and patient was treated with respect by myself and nursing staff throughout ED stay. Ultimately, I agreed to provide the patient with Mg citrate and encourage him to try this and return to this ED if symptoms did not improve. MDM: The patient complains of epigastric pain without nausea or signs of GI bleed. He arrives after having been discharged from [facility] several hours ago where he appears to have undergone a full evaluation for these same symptoms including CT imaging. Given no signs of acute abdominal emergency or obstruction on the CT from earlier in the day, I do not think additional emergent imaging is indicated and I do not want to cause him further harm secondary to unnecessary ionizing radiation. The etiology of the patient' s symptoms is unclear, but my ability to evaluate him is severely limited by his hostility and demands for treatments that are not indicated. - Data Points Medications Given: Discontinued Medications Magnesium Citrate (Magnesium Citrate) 300 ml PO ONCE ONE Stop: 07/09/18 18:33 Last Admin: 07/09/18 18:45 Dose: 1 btl General Time Seen by Provider: 07/09/18 17:47 Initial Vital Signs: Initial Vital Signs Temperature (C) 36.5 C 07/09/18 17:55 Heart Rate 59 L 07/09/18 17:55 Respiratory Rate 18 07/09/18 17:55 Blood Pressure 173/109 H 07/09/18 17:55 O2 Sat (%) 97 07/09/18 17:55 O2 Delivery Mode Room Air Allergies/Adverse Reactions: Penicillins Allergy (Severe, Verified 07/09/18 18:01) rash, resp distress divalproex sodium [From Depakote] Allergy (Verified 07/09/18 18:01) haloperidol [From Haldol] Allergy (Verified 07/09/18 18:01) haloperidol lactate [From Haldol] Allergy (Verified 07/09/18 18:01) red dye Allergy (Verified 07/09/18 18:01) BIPOLAR MED USED FOR ACNE Allergy (Uncoded 07/09/18 18:01) HALDOL Allergy (Uncoded 07/09/18 18:01) Home Medications: Medication Instructions Recorded Melatonin [Melatonin 3 MG (*)] 3 mg PO HS PRN #0 tab 01/04/17 OLANZapine [Zyprexa] 15 mg PO HS #90 tablet 01/04/17 Sennosides [Senokot] 1 tab PO BID PRN #0 tab 01/04/17 Departure - Departure Disposition: Home, Routine, Self-Care Clinical Impression: Constipation Condition: Good Instructions: Constipation (ED), High Fiber Diet (ED) Additional Instructions: Take magnesium citrate as directed. Follow up with your primary care provider or with a GI specialist for further evaluation. We have referred you to our GI specialist electronic components assembler. Return for worsening pain, fever, or other concerns. Referrals: Shaylee Yun MD [Medical Doctor] - As per Instructions Report Scribed for: Shaan Izquierdo Report Scribed by: Paulina Mejia Date of Report: 07/09/18 Time of Report: 19:33 Physician Review and Approval Statement: Portions of this note were transcribed by an ED scribe. I personally performed the history, physical exam, and medical decision making; and confirm the accuracy of the information in the transcribed note.
[2018-07-09 18:16] VITALS: BP 173/109
[2018-07-09] MEDS ORDERED: MAGNESIUM CITRATE 300 ML BOTTLE PO ONE (18:32)
== END 2018-07-09 18:47 | disposition home or self-care (01) ==
DX: K59.00 Constipation, unspecified (principal); F31.9 Bipolar disorder, unspecified